=== PATIENT | male | born 1965 ===

== ENCOUNTER 2017-06-03 07:23 | Day surgery (SDC) | payer SELFPAY ==
[2017-06-03] MEDS ORDERED: Lactated Ringer's 500 ML IV ONE (09:00)
[2017-06-03 09:02] VITALS: BMI 29.9
[2017-06-03 09:26] VITALS: TEMP 97
[2017-06-03] MEDS ORDERED: Propofol 10 mg/ml Inj (20 ML) ONE (11:36)
[2017-06-03 12:04] VITALS: O2SAT 100
[2017-06-03] MEDS ORDERED: EPINEPHrine 1 mg/ml (1:1000) Inj ONE (12:12)
[2017-06-03 12:14] VITALS: BP 118/70; PULSE 88; RESP 14
== END 2017-06-03 12:16 | disposition home or self-care (01) ==
LOC: H.ENDO 07:23
PROVIDERS: ATTEND Internal Medicine Gastroenterology
DX: Z12.11 Encounter for screening for malignant neoplasm of colon (principal); E03.9 Hypothyroidism, unspecified; K57.30 Diverticulosis of large intestine without perforation or abscess without bleeding
CPT/HCPCS: 45378; J0171; J2704; J7120